=== PATIENT | male | born 1990 | race Caucasian/White ===

== ENCOUNTER 2018-05-20 16:03 | Emergency (ER) | payer OTHER ==
[~2018-05-20] VITALS: Ht 188 cm; Wt 86.2 kg
== END 2018-05-20 19:37 | disposition home or self-care (01) ==
LOC: ER 16:03
DX: S01.522A Laceration with foreign body of oral cavity, initial encounter (principal); W45.8XXA Other foreign body or object entering through skin, initial encounter; Y93.89 Activity, other specified; Y92.832 Beach as the place of occurrence of the external cause; Y99.8 Other external cause status